=== PATIENT | female | born 1955 | race Caucasian/White ===

== ENCOUNTER 2018-04-14 17:32 | Emergency (ER) | payer BC ==
[~2018-04-14] VITALS: Ht 157.5 cm; Wt 55.5 kg
[2018-04-14] MEDS ORDERED: KENALOG,ARISTOC80 G1 TP (18:35)
[2018-04-14] MEDS ORDERED: PREDNISONE20 MG PO (18:35)
[2018-04-14 18:46] VITALS: BP 121/83
== END 2018-04-14 18:47 | disposition home or self-care (01) ==
LOC: EME 17:32
DX: L25.9 Unspecified contact dermatitis, unspecified cause (principal)
CPT/HCPCS: 99281; 99283; J2930